=== PATIENT | female | born 1990 | race Two or more races ===

== ENCOUNTER 2019-02-22 18:24 | Emergency (ER) | payer BC ==
--- NOTE | 2019-02-22 18:59 | EDM.PDOC ---
ED HPI GENERAL MEDICAL PROBLEM - General Chief Complaint: ENT Problem Stated Complaint: PT HAS SORE THROAT Time Seen by Provider: 02/22/19 18:50 Source of Information: Reports: Patient History Limitations: Reports: No Limitations - History of Present Illness INITIAL COMMENTS - FREE TEXT/NARRATIVE: HISTORY AND PHYSICAL: History of present illness: Patient is a 29-year-old female presents to the ED today with concern of sore throat 4 days. Patient states she has had strep in the past medical symptoms today feel similar to that. She states she has not taken anything for her symptoms and has been able to eat and drink without difficulty. Patient denies any other symptoms or concerns. Patient denies fever, chills, chest pain, shortness of breath, or cough. Denies headache, neck stiff ness, change in vision, syncope, or near syncope. Denies nausea, vomiting, abdominal pain, diarrhea, constipation, or dysuria. Has not noted any blood in urine or stool. Patient has been eating and drinking appropriately. Review of systems: As per history of present illness and below otherwise all systems reviewed and negative. Past medical history: As per history of present illness and as reviewed below otherwise noncontributory. Surgical history: As per history of present illness and as reviewed below otherwise noncontributory. Social history: See social history for further information Family history: As per history of present illness and as reviewed below otherwise noncontributory. Physical exam: General: Patient is alert, oriented, and in no acute distress. Patient sitting comfortably on exam table. HEENT: Atraumatic, normocephalic, pupils equal and reactive bilaterally, negative for conjunctival pallor or scleral icterus, mucous membranes moist, TMs normal bilaterally, throat is moderately erythematous and tonsils are enlarged with white exudate, neck supple, nontender, trachea midline. No drooling or trismus noted. No meningeal signs. No hot potato voice noted. Lungs: Clear to auscultation, breath sounds equal bilaterally, chest nontender. Heart: S1S2, regular rate and rhythm without overt murmur Abdomen: Soft, nondistended, nontender. Negative for masses or hepatosplenomegaly. Negative for costovertebral tenderness. Pelvis: Stable nontender. Genitourinary: Deferred. Rectal: Deferred. Skin: Intact, warm, dry. No lesions or rashes noted. Extremities: Atraumatic, negative for cords or calf pain. Neurovascular unremarkable. Neuro: Awake, alert, oriented. Cranial nerves II through XII unremarkable. Cerebellum unremarkable. Motor and sensory unremarkable throughout. Exam nonfocal. Notes: Discussed the importance for follow-up with primary care provider. Voices understanding and is agreeable to plan of care. Denies any further questions or concerns at this time. Diagnostics: None Therapeutics: None Prescription: Clindamycin Impression: Pharyngitis Plan: 1. Take medication as prescribed. You can alternate ibuprofen and Tylenol as directed for pain and discomfort. 2. Follow-up with her primary care provider as discussed. Return to the ED as needed and as discussed. Definitive disposition and diagnosis as appropriate pending reevaluation and review of above. - Related Data Allergies Allergy/AdvReac Type Severity Reaction Status Date / Time Penicillins Allergy Rash Verified 02/22/19 18:50 Home Meds: Home Meds . [No Known Home Meds] 02/22/19 [History] ED ROS GENERAL - Review of Systems Review Of Systems: ROS reveals no pertinent complaints other than HPI. ED EXAM, GENERAL - Physical Exam Exam: See Below (See dictation) Course - Vital Signs Last Recorded V/S: Last Vital Signs Temp 36.8 C 02/22/19 18:51 Pulse 108 H 02/22/19 18:51 Resp 16 02/22/19 18:51 BP 121/71 02/22/19 18:51 Pulse Ox 100 02/22/19 18:51 Departure - Departure Time of Disposition: 18:59 Disposition: Home, Self-Care 01 Clinical Impression: Pharyngitis Qualifiers: Pharyngitis/tonsillitis etiology: unspecified etiology Qualified Code(s): J02.9 - Acute pharyngitis, unspecified - Discharge Information Referrals: PCP,None [Primary Care Provider] - Forms: ED Department Discharge Additional Instructions: The following information is given to patients seen in the emergency department who are being discharged to home. This information is to outline your options for follow-up care. We provide all patients seen in our emergency department with a follow-up referral. The need for follow-up, as well as the timing and circumstances, are variable depending upon the specifics of your emergency department visit. If you don't have a primary care physician on staff, we will provide you with a referral. We always advise you to contact your personal physician following an emergency department visit to inform them of the circumstance of the visit and for follow-up with them and/or the need for any referrals to a consulting specialist. The emergency department will also refer you to a specialist when appropriate. This referral assures that you have the opportunity for follow-up care with a specialist. All of these measure are taken in an effort to provide you with optimal care, which includes your follow-up. Under all circumstances we always encourage you to contact your private physician who remains a resource for coordinating your care. When calling for follow-up care, please make the office aware that this follow-up is from your recent emergency room visit. If for any reason you are refused follow-up, please contact the [facility] Emergency Department at and asked to speak to the emergency department charge nurse. [facility] [address] [place] [address] [id number] 1. Take medication as prescribed. You can alternate ibuprofen and Tylenol as directed for pain and discomfort. 2. Follow-up with her primary care provider as discussed. Return to the ED as needed and as discussed.
== END 2019-02-22 19:11 | disposition home or self-care (01) ==
LOC: MW.ED 18:24
DX: J02.9 Acute pharyngitis, unspecified (principal); Z88.0 Allergy status to penicillin
CPT/HCPCS: 99282

== ENCOUNTER 2019-02-22 23:47 | Emergency (ER) | payer BC ==
[2019-02-22] MEDS ORDERED: cefTRIAXone 1 GM in Premix Bag 1 BAG IV ONE (23:59)
[2019-02-22] MEDS ORDERED: Sodium Chloride 0.9% 1,000 ML IV ONE (23:59)
[2019-02-22] MEDS ORDERED: Sodium Chloride 0.9% 2.5 ML Syringe FLUSH PRN (23:59)
[2019-02-22] MEDS ORDERED: Dexamethasone 10 MG/ML SDV IVPUSH ONE (23:59)
[2019-02-22] MEDS ORDERED: Ketorolac 30 MG/ML SDV IVPUSH ONE (23:59)
[2019-02-22] MEDS ORDERED: Sodium Chloride 0.9% 10 ML Syringe FLUSH PRN (23:59)
--- NOTE | 2019-02-23 00:03 | EDM.PDOC ---
ED HPI GENERAL MEDICAL PROBLEM - General Chief Complaint: ENT Problem Stated Complaint: PT THROAT IS SWELLING Time Seen by Provider: 02/22/19 23:55 - History of Present Illness INITIAL COMMENTS - FREE TEXT/NARRATIVE: HISTORY AND PHYSICAL: History of present illness: The patient is a 29-year-old female who was seen here earlier today with complaints of sore throat for 5 days and was diagnosed as pharyngitis/ tonsillitis and placed on clindamycin and represented this evening saying that she feels like her throat is more swollen. She says the pain is more on the right side and she feels like her glands in her neck are more swollen on that side and she is having difficulty swallowing. She has been able to tolerate fluids and has no nausea vomiting or abdominal pain. She has no chest pain or shortness of breath. The patient has a history of a bilateral tubal ligation. Review of systems: As per history of present illness and below otherwise all systems reviewed and negative. Past medical history: As per history of present illness and as reviewed below otherwise noncontributory. Surgical history: As per history of present illness and as reviewed below otherwise noncontributory. Social history: No reported history of drug or alcohol abuse. Family history: As per history of present illness and as reviewed below otherwise noncontributory. Physical exam: General: Well-developed well-nourished female who is nontoxic and vital signs are noted by me. She speaks with a somewhat hoarse voice but is not breathless. HEENT: Atraumatic, normocephalic, pupils reactive, negative for conjunctival pallor or scleral icterus, mucous membranes moist, throat clear, neck supple, nontender, trachea midline. There is anterior cervical adenopathy right greater than left but no posterior adenopathy and no nuchal rigidity. Bilateral tonsillar areas are swollen and erythematous with exudates but the right is larger than the left with a slight shift of the uvula. Lungs: Clear to auscultation, breath sounds equal bilaterally, chest nontender. No wheezing or stridor Heart: S1S2, regular, negative for clicks, rubs, or JVD. Abdomen: Soft, nondistended, nontender. Negative for masses or hepatosplenomegaly. Negative for costovertebral tenderness. Pelvis: Deferred Genitourinary: Deferred. Rectal: Deferred. Extremities: Atraumatic, negative for cords or calf pain. Neurovascular unremarkable. Neuro: Awake, alert, oriented. Cranial nerves II through XII unremarkable. Cerebellum unremarkable. Motor and sensory unremarkable throughout. Exam nonfocal. Diagnostics: CBC CMP CT scan of the soft tissue neck Therapeutics: IV fluids Toradol Decadron Rocephin 0225: Case was discussed with Dr. Alejo at [facility] in [place] for this peritonsillar abscess as we do not have ENT here at our facility. He is aware and accepts the patient. I discussed with the patient her lab and CAT scan findings and the need to go to [place] and she would like to go by private car. She is aware that we will remove the IV. She is also aware that there is no evidence of any airway compromise on her CAT scan and that she can go by private car and we will send her with the appropriate papers. I did discuss with her elevated liver function tests and need for follow-up. Impression: Right peritonsillar abscess Definitive disposition and diagnosis as appropriate pending reevaluation and review of above. throat Pain Score (Numeric/FACES): 8 - Related Data Allergies Allergy/AdvReac Type Severity Reaction Status Date / Time ciprofloxacin [From Cipro] Allergy Itching Verified 02/22/19 23:55 Penicillins Allergy Rash Verified 02/22/19 23:55 Home Meds: Home Meds . [No Known Home Meds] 02/22/19 [History] Past Medical History - Infectious Disease History Infectious Disease History: Reports: Chicken Pox - Past Surgical History Dermatological Surgical History: Reports: Skin Biopsy Social & Family History - Family History Family Medical History: Noncontributory - Caffeine Use Caffeine Use: Reports: Coffee ED ROS GENERAL - Review of Systems Review Of Systems: ROS reveals no pertinent complaints other than HPI. ED EXAM, GENERAL - Physical Exam Exam: See Below (see dictation) Course - Vital Signs Last Recorded V/S: Last Vital Signs Temp 37.4 C 02/22/19 23:55 Pulse 97 02/22/19 23:55 Resp 18 02/22/19 23:55 BP 132/92 H 02/22/19 23:55 Pulse Ox 100 02/22/19 23:55 - Orders/Labs/Meds Orders: Active Orders 24 hr Category Date Time Status Sodium Chloride 0.9% [Saline Flush] Med 02/22/19 23:59 Active 10 ml FLUSH ASDIRECTED PRN Sodium Chloride 0.9% [Saline Flush] Med 02/22/19 23:59 Active 2.5 ml FLUSH ASDIRECTED PRN Saline Lock Insert [OM.PC] Stat Oth 02/22/19 23:58 Ordered Medication Orders Sodium Chloride (Saline Flush) 10 ml FLUSH ASDIRECTED PRN PRN Reason: Keep Vein Open Sodium Chloride (Saline Flush) 2.5 ml FLUSH ASDIRECTED PRN PRN Reason: Keep Vein Open Labs: Laboratory Tests 02/23/19 02/23/19 Range/Units 00:15 00:15 WBC 10.40 (4.0-11.0) K/uL RBC 4.24 L (4.30-5.90) M/uL Hgb 12.9 (12.0-16.0) g/dL Hct 38.0 (36.0-46.0) % MCV 89.6 (80.0-98.0) fL MCH 30.4 (27.0-32.0) pg MCHC 33.9 (31.0-37.0) g/dL RDW Std Deviation 41.8 (28.0-62.0) fl RDW Coeff of Efra 13 (11.0-15.0) % Plt Count 337 (150-400) K/uL MPV 10.30 (7.40-12.00) fL Add Manual Diff YES Neutrophils % (Manual) 62 (48.0-80.0) % Band Neutrophils % 2 % Lymphocytes % (Manual) 27 (16.0-40.0) % Monocytes % (Manual) 5 (0.0-15.0) % Eosinophils % (Manual) 3 (0.0-7.0) % Basophils % (Manual) 1 (0.0-1.5) % Absolute Seg Neuts 6.4 H (1.4-5.7) Band Neutrophils # 0.2 Lymphocytes # (Manual) 2.8 H (0.6-2.4) Monocytes # (Manual) 0.5 (0.0-0.8) Eosinophils # (Manual) 0.3 (0.0-0.7) Basophils # (Manual) 0.1 (0.0-0.1) Sodium 142 (136-145) mmol/L Potassium 3.5 (3.5-5.1) mmol/L Chloride 105 (98-107) mmol/L Carbon Dioxide 27.2 (21.0-32.0) mmol/L BUN 12 (7.0-18.0) mg/dL Creatinine 0.8 (0.6-1.0) mg/dL Est Cr Clr Drug Dosing 94.55 mL/min Estimated GFR (MDRD) > 60.0 ml/min Glucose 90 (74-106) mg/dL Calcium 9.3 (8.5-10.1) mg/dL Total Bilirubin 0.4 (0.2-1.0) mg/dL AST 264 H (15-37) IU/L ALT 223 H (14-63) IU/L Alkaline Phosphatase 269 H (46-116) U/L Total Protein 7.6 (6.4-8.2) g/dL Albumin 3.4 (3.4-5.0) g/dL Globulin 4.2 H (2.6-4.0) g/dL Albumin/Globulin Ratio 0.8 L (0.9-1.6) Meds: Medications Generic Name Dose Route Start Last Admin Trade Name Freq PRN Reason Stop Dose Admin Sodium Chloride 10 ml 02/22/19 23:59 Saline Flush FLUSH ASDIRECTED PRN Keep Vein Open Sodium Chloride 2.5 ml 02/22/19 23:59 Saline Flush FLUSH ASDIRECTED PRN Keep Vein Open Discontinued Medications Generic Name Dose Route Start Last Admin Trade Name Freq PRN Reason Stop Dose Admin Dexamethasone 10 mg 02/22/19 23:59 02/23/19 00:15 Dexamethasone IVPUSH 02/23/19 00:00 10 mg ONETIME ONE Administration Ceftriaxone Sodium/Dextrose 1 50 mls @ 100 mls/hr 02/22/19 23:59 02/23/19 00: 20 gm/ Premix IV 02/23/19 00:28 100 mls/hr ONETIME ONE Administration Sodium Chloride 1,000 mls @ 999 mls/hr 02/22/19 23:59 02/23/19 00:15 Normal Saline IV 02/23/19 00:59 999 mls/hr STAT ONE Administration Iopamidol 75 ml 02/23/19 01:34 02/23/19 01:36 Isovue Multipack-370 (76%) IVPUSH 02/23/19 01:35 75 ml ONETIME ONE Administration Ketorolac Tromethamine 30 mg 02/22/19 23:59 02/23/19 00:16 Toradol IVPUSH 02/23/19 00:00 30 mg ONETIME ONE Administration Departure - Departure Time of Disposition: 02:32 Disposition: DC/Tfer to Acute Hospital 02 Condition: Good Clinical Impression: Peritonsillar abscess - Discharge Information Referrals: PCP,None [Primary Care Provider] - Forms: ED Department Discharge - My Orders Last 24 Hours: My Active Orders 02/22/19 23:58 Saline Lock Insert [OM.PC] Stat 02/22/19 23:59 Sodium Chloride 0.9% [Saline Flush] 10 ml FLUSH ASDIRECTED PRN Sodium Chloride 0.9% [Saline Flush] 2.5 ml FLUSH ASDIRECTED PRN - Assessment/Plan Last 24 Hours: My Active Orders 02/22/19 23:58 Saline Lock Insert [OM.PC] Stat 02/22/19 23:59 Sodium Chloride 0.9% [Saline Flush] 10 ml FLUSH ASDIRECTED PRN Sodium Chloride 0.9% [Saline Flush] 2.5 ml FLUSH ASDIRECTED PRN
[2019-02-23 01:04] LABS: BLOOD UREA NITROGEN,BUN 12 mg/dL (7.0-18.0); CARBON DIOXIDE,CO2 27.2 mmol/L (21.0-32.0); CHLORIDE,CL 105 mmol/L (98-107); GLUCOSE RANDOM 90 mg/dL (74-106); POTASSIUM,K 3.5 mmol/L (3.5-5.1); SODIUM,NA 142 mmol/L (136-145)
[2019-02-23] MEDS ORDERED: Iopamidol 755 MG/ML 500 ML Multipack Bottle IVPUSH ONE (01:34)
--- NOTE | 2019-02-23 02:15 | CT ---
INDICATION: Sore throat and swollen neck TECHNIQUE: CT neck soft tissue with i.v. contrast. Coronal and sagittal reformats were obtained. CONTRAST: 75 mL Isovue 370 COMPARISON: None FINDINGS: Skull base: Unremarkable. Portions of the oral cavity and mandible are obscured by streak artifacts from the patient`s dental amalgams. Pharynx: No retropharyngeal fluid collections are identified. Moderate enlargement of the right palatine tonsil is present with a tonsillar abscess measuring 2.5 x 1.2 cm. Mild adenoidal hypertrophy in the right posterior nasopharynx is seen and obscuring the fossa of Rosenmuller. Follow-up imaging is recommended to document resolution. Mild edema is present within the right parapharyngeal space. The epiglottis is normal in appearance. Larynx and airway: Unremarkable. Salivary: Unremarkable. Thyroid: Unremarkable. Vascular: Unremarkable for age. Lymph: A right jugular adenopathy present with lymph nodes measuring up to 1.3 cm in maximal short axis diameter. Bone: Mild kyphosis of the mid cervical spine is seen. Disc: The disc spaces are unremarkable in appearance. The facet joints are unremarkable. Soft tissue: The prevertebral soft tissues are unremarkable in appearance. Lung: The visualized lung apices and mediastinum are unremarkable. IMPRESSIONS: 1. Moderate enlargement of the right palatine tonsil is present with a tonsillar abscess measuring 2.5 x 1.2 cm. 2. A right jugular adenopathy present with lymph nodes measuring up to 1.3 cm in maximal short axis diameter. Dictated by Adan Tillman MD @ 02/23/2019 2:12:30 AM Please note that all CT scans at this facility use dose modulation, iterative reconstruction, and/or weight-based dosing when appropriate to reduce radiation dose to as low as reasonably achievable. Dictated by: Adan Tillman MD @ 02/23/2019 02:12:32 (Electronically Signed)
== END 2019-02-23 03:00 ==
LOC: MW.ED 23:47
DX: J36 Peritonsillar abscess (principal); Z88.1 Allergy status to other antibiotic agents; Z88.0 Allergy status to penicillin
CPT/HCPCS: 36415; 70491; 80053; 85025; 96365; 96375; 99284; J0696; J1100; J1885; J7040; Q9967

== ENCOUNTER 2021-05-03 13:49 | Emergency (ER) | payer OTHER ==
--- NOTE | 2021-05-03 14:19 | CR ---
INDICATION: Chest pain, shortness of breath TECHNIQUE: Chest radiograph 1 view COMPARISON: None FINDINGS: Mediastinum: The mediastinum is normal in appearance. The heart silhouette is normal in size and morphology. Lung: A small peripheral ground-glass nodule seen in the left mid lung zone measuring 1.5 cm. No sign of pleural effusion seen. No pneumothorax is identified. Bone and Soft tissue: Unremarkable for age. IMPRESSION: 1. A small peripheral ground-glass nodule seen in the left mid lung zone measuring 1.5 cm. Follow-up chest radiograph in 3 months is recommended. Dictated by Adan Tillman MD @ 05/03/2021 2:18:42 PM Dictated by: Adan Tillman MD @ 05/03/2021 14:18:46 (Electronically Signed)
--- NOTE | 2021-05-03 16:41 | EDM.PDOC ---
ED HPI GENERAL MEDICAL PROBLEM - General Chief Complaint: Respiratory Problem Stated Complaint: COVID POS SOB Time Seen by Provider: 05/03/21 16:37 Source of Information: Reports: Patient History Limitations: Reports: No Limitations - History of Present Illness INITIAL COMMENTS - FREE TEXT/NARRATIVE: HISTORY AND PHYSICAL: History of present illness: Patient is a 31-year-old female who presents to the emergency room with complaints of increased shortness of breath since being diagnosed with COVID-19. She states she was diagnosed on 04/25/2021. She has had a mild headache with diarrhea. Patient denies any fever, chills, headache, change in vision, syncope or near syncope. Denies any chest pain, back pain, shortness of breath or cough. Denies any abdominal pain, nausea, vomiting, diarrhea, constipation or dysuria. Has not noted any blood in urine or stool. Patient has been eating and drinking appropriately. No recent travel or sick contacts. Review of systems: As per history of present illness and below otherwise all systems reviewed and negative. Past medical history: As per history of present illness and as reviewed below otherwise noncontributory. Surgical history: As per history of present illness and as reviewed below otherwise noncontributory. Social history: See social history for further information Family history: As per history of present illness and as reviewed below otherwise noncontributory. Physical exam: General: Well developed and well nourished. Alert and orientated x 3. Nontoxic in appearance and in no acute distress. Vital signs are stable and have been reviewed by me. Nursing notes were reviewed. HEENT: Atraumatic, normocephalic, pupils equal and reactive bilaterally, negative for conjunctival pallor or scleral icterus, mucous membranes moist, TMs normal bilaterally, throat clear, neck supple, nontender, trachea midline. No drooling or trismus noted. No meningeal signs. No hot potato voice noted. Lungs: Clear to auscultation bilaterally. No wheezes, rales, or rhonchi. Chest nontender. Normal work of breathing, no accessory muscles used. Heart: S1S2, regular rate and rhythm without overt murmur, gallops, or rubs. No JVD. No peripheral edema Abdomen: Soft, nondistended, nontender. Normoactive bowel sounds. Negative for masses or costovertebral tenderness. Skin: Intact, warm, dry. No lesions or rashes noted. Hematologic: No petechiae or purpra. Mucosa appropriate color and normal nail bed color and refill. Extremities: Atraumatic, moves all extremities per self without difficulty or deficits, negative for cords or calf pain. Neurovascular unremarkable. Neuro: Awake, alert, oriented. Cranial nerves II through XII unremarkable. Cerebellum unremarkable. Motor and sensory unremarkable throughout. Exam non focal. Psychiatric: Mood and affect are appropriate. Normal thought process. Answering questions appropriately. Please note that the patient was seen and evaluated during the 2019 SARS-CoV-2 novel coronavirus pandemic period. Community viral transmission is ongoing at time of this encounter and the emergency department is operating under pandemic response procedures. Medical Decision Making: A small peripheral ground-glass nodule seen in the left mid lung zone measuring 1.5 cm. Follow-up chest radiograph in 3 months is recommended. I have talked with the patient about today's findings, in addition to providing specific details for plan of care. Reassessment at the time of disposition demonstrates that the patient is in no acute distress. The patient is stable for discharge, counseling was provided and we discussed in great detail signs and symptoms that would prompt them to return to the Emergency Department. Medication, follow up and supportive care measures were reviewed and discussed. Voices understanding and is agreeable to plan of care. Denies any further questions or concerns at this time. Diagnostics: CXR, EKG Therapeutics: None Prescription: None Impression: COVID-19 Plan: 1. Your chest x-ray shows a small nodule in the left lung that recommends a follow-up chest radiograph in 3 months. No concern for pneumonia. EKG shows no acute or concerning findings. Unfortunately your symptoms are likely due to COVID-19 progression. Your vital signs and oxygen saturation are well enough that you were able to monitor your symptoms at home. Continue to monitor for trouble breathing, new confusion or inability to arouse, bluish lips or face or any of the other symptoms we discussed -if this occurs please return to the emergency room immediately. 2. Please self quarantine until cleared by [facility]. Inform any persons that you have been in contact with since you started becoming symptomatic that you have tested positive; they should be made aware and take the appropriate steps as needed. 3. You can take NyQuil during the evening to help get a restful night sleep. May alternate Tylenol and ibuprofen as needed for pain and fever management. 4. The [place] COVID 19 Hotline phone number , They are open Thursday - Thursday 7am - 7pm. Follow up with your primary care provider for re-evaluation as directed. Definitive disposition and diagnosis as appropriate pending reevaluation and review of above. Chest Pain Score (Numeric/FACES): 4 - Related Data Allergies Allergy/AdvReac Type Severity Reaction Status Date / Time ciprofloxacin [From Cipro] Allergy Itching Verified 05/03/21 17:25 Penicillins Allergy Rash Verified 05/03/21 17:25 Home Meds: Home Meds . [No Known Home Meds] 02/22/19 [History] Past Medical History - Past Health History Medical/Surgical History: Denies Medical/Surgical History HEENT History: Reports: None Cardiovascular History: Reports: None Respiratory History: Reports: None Gastrointestinal History: Reports: None Genitourinary History: Reports: None PLUGMAN History: Reports: None Musculoskeletal History: Reports: None Neurological History: Reports: None Psychiatric History: Reports: None Endocrine/Metabolic History: Reports: None Hematologic History: Reports: None Immunologic History: Reports: None - Infectious Disease History Infectious Disease History: Reports: Chicken Pox - Past Surgical History Dermatological Surgical History: Reports: Skin Biopsy Social & Family History - Family History Family Medical History: No Pertinent Family History - Caffeine Use Caffeine Use: Reports: Coffee ED ROS GENERAL - Review of Systems Review Of Systems: Comprehensive ROS is negative, except as noted in HPI. ED EXAM, GENERAL - Physical Exam Exam: See Below (See dictation) Course - Vital Signs Last Recorded V/S: Last Vital Signs Temp 97.0 F 05/03/21 17:26 Pulse 106 H 05/03/21 17:26 Resp 16 05/03/21 17:26 BP 108/73 05/03/21 17:26 Pulse Ox 100 05/03/21 17:26 - Orders/Labs/Meds Orders: Active Orders 24 hr Category Date Time Status EKG Documentation Completion [RC] STAT Care 05/03/21 17:30 Ordered Departure - Departure Time of Disposition: 17:41 Disposition: Home, Self-Care 01 Clinical Impression: COVID-19 - Discharge Information Instructions: 10 Things You Can Do to Manage Your COVID-19 Symptoms at Home - [facility] (12/28/2020) Referrals: PCP,None [Primary Care Provider] - Forms: ED Department Discharge Additional Instructions: The following information is given to patients seen in the emergency department who are being discharged to home. This information is to outline your options for follow-up care. We provide all patients seen in our emergency department with a follow-up referral. The need for follow-up, as well as the timing and circumstances, are variable depending upon the specifics of your emergency department visit. If you don't have a primary care physician on staff, we will provide you with a referral. We always advise you to contact your personal physician following an emergency department visit to inform them of the circumstance of the visit and for follow-up with them and/or the need for any referrals to a consulting specialist. The emergency department will also refer you to a specialist when appropriate. This referral assures that you have the opportunity for follow-up care with a specialist. All of these measure are taken in an effort to provide you with optimal care, which includes your follow-up. Under all circumstances we always encourage you to contact your private physician who remains a resource for coordinating your care. When calling for follow-up care, please make the office aware that this follow-up is from your recent emergency room visit. If for any reason you are refused follow-up, please contact the [facility] Emergency Department at and asked to speak to the emergency department charge nurse. [facility] [address] [place] [address] [place] [address] Thank you for choosing the [facility] emergency department in [place] for your medical needs today. It was a pleasure caring for you. Today you were seen in the emergency department for increased shortness of breath with COVID-19 1. Your chest x-ray shows a small nodule in the left lung that recommends a follow-up chest radiograph in 3 months. No concern for pneumonia. EKG shows no acute or concerning findings. Unfortunately your symptoms are likely due to COVID-19 progression. Your vital signs and oxygen saturation are well enough that you were able to monitor your symptoms at home. Continue to monitor for trouble breathing, new confusion or inability to arouse, bluish lips or face or any of the other symptoms we discussed -if this occurs please return to the emergency room immediately. 2. Please self quarantine until cleared by [facility] Department. Inform any persons that you have been in contact with since you started becoming symptomatic that you have tested positive; they should be made aware and take the appropriate steps as needed. 3. You can take NyQuil during the evening to help get a restful night sleep. May alternate Tylenol and ibuprofen as needed for pain and fever management. 4. The [place] COVID 19 Hotline phone number , They are open Thursday - Thursday 7am - 7pm. Follow up with your primary care provider for re-evaluation as directed. Sepsis Event Note (ED) - Focused Exam Vital Signs: Vital Signs Temp Pulse Resp BP Pulse Ox 05/03/21 17:26 97.0 F 106 H 16 108/73 100 - My Orders Last 24 Hours: My Active Orders 05/03/21 17:30 EKG Documentation Completion [RC] STAT - Assessment/Plan Last 24 Hours: My Active Orders 05/03/21 17:30 EKG Documentation Completion [RC] STAT
--- NOTE | 2021-05-03 17:42 | PCM.EKG ---
#1 Interpretation EKG Date: 05/03/21 Time: 17:35 Rhythm: NSR Rate (Beats/Min): 105 [place]: Normal P-Wave: Present QRS: Normal ST-T: Normal QT: Normal Comparison: NA - No Prior EKG EKG Interpretation Comments: Sinus Tachycardia
== END 2021-05-03 18:00 | disposition home or self-care (01) ==
LOC: MW.ED 13:49
DX: U07.1 COVID-19 (principal); Z88.0 Allergy status to penicillin; Z88.1 Allergy status to other antibiotic agents
CPT/HCPCS: 71045; 71045-26; 93005; 99285-25

== ENCOUNTER 2022-03-12 01:12 | Emergency (ER) | payer OTHER ==
[2022-03-12] MEDS ORDERED: Ketorolac 30 MG/ML SDV IM STA (01:35)
[2022-03-12] MEDS ORDERED: Doxycycline 100 MG Cap PO ONE (01:35)
== END 2022-03-12 01:48 | disposition home or self-care (01) ==
LOC: MW.ED 01:12
DX: L01.00 Impetigo, unspecified (principal); Z88.0 Allergy status to penicillin
CPT/HCPCS: 99282; A9270; 99283

== ENCOUNTER 2022-03-31 12:14 | Emergency (ER) | payer OTHER | END 2022-03-31 14:02 | disposition home or self-care (01) | LOC: MW.ED 12:14 | DX: L03.211 Cellulitis of face (principal); H60.91 Unspecified otitis externa, right ear; Z88.0 Allergy status to penicillin; Z88.1 Allergy status to other antibiotic agents | CPT/HCPCS: 99283 ==

== ENCOUNTER 2022-04-06 16:51 | Emergency (ER) | payer OTHER ==
[2022-04-06 17:59] LABS: CORONAVIRUS COVID-19 NAA NEGATIVE (NEGATIVE); INFLUENZA A NAA NEGATIVE (NEGATIVE); INFLUENZA B NAA NEGATIVE (NEGATIVE)
== END 2022-04-06 19:40 | disposition home or self-care (01) ==
LOC: MW.ED 16:51
DX: B34.9 Viral infection, unspecified (principal); Z88.0 Allergy status to penicillin; Z88.1 Allergy status to other antibiotic agents; Z20.822 Contact with and (suspected) exposure to COVID-19
CPT/HCPCS: 0240U; 70360; 71046; 87651; 99284; 99283

== ENCOUNTER 2022-05-24 21:33 | Emergency (ER) | payer OTHER ==
[2022-05-24] MEDS ORDERED: Lactated Ringers 1,000 ML IV STA (23:54)
[2022-05-24] MEDS ORDERED: Meclizine 25 MG Tab PO ONE (23:54)
[2022-05-25 00:43] LABS: BLOOD UREA NITROGEN,BUN 21 mg/dL (7.0-18.0); CARBON DIOXIDE,CO2 29.1 mmol/L (21.0-32.0); CHLORIDE,CL 103 mmol/L (98-107); GLUCOSE RANDOM 92 mg/dL (74-106); POTASSIUM,K 4.2 mmol/L (3.5-5.1); SODIUM,NA 140 mmol/L (136-145)
[2022-05-25 00:46] LABS: ESTIMATED GFR 124 mL/min (>60)
[2022-05-25] MEDS ORDERED: Ondansetron 4 MG/2 ML SDV IVPUSH ONE (00:57)
== END 2022-05-25 01:14 | disposition home or self-care (01) ==
LOC: MW.ED 21:33
DX: R42 Dizziness and giddiness (principal); Z88.1 Allergy status to other antibiotic agents; Z88.0 Allergy status to penicillin; Z90.49 Acquired absence of other specified parts of digestive tract
CPT/HCPCS: 36415; 80053; 81003; 81025; 83735; 84484; 85025; 93005; 96361; 96374; 99284; A9270; J2405; J7120; 93010; 99283

== ENCOUNTER 2022-11-21 09:39 | Emergency (ER) | payer BC, OTHER ==
[2022-11-21] MEDS ORDERED: Ketorolac 30 MG/ML SDV IVPUSH ONE (10:13)
[2022-11-21] MEDS ORDERED: Acetaminophen 325 MG Tab PO ONE (10:13)
[2022-11-21] MEDS ORDERED: Sodium Chloride 0.9% 10 ML Syringe FLUSH PRN (10:14)
[2022-11-21] MEDS ORDERED: Lidocaine 4% 1 each Patch TOP STA (10:14)
[2022-11-21] MEDS ORDERED: Sodium Chloride 0.9% 2.5 ML Syringe FLUSH PRN (10:14)
[2022-11-21 10:43] LABS: BASOPHILS PERCENT AUTO 0.3 % (0.0-1.5); EOSINOPHILS ABSOLUTE AUTO 0.4 K/uL (0.0-0.7); EOSINOPHILS PERCENT AUTO 5.7 % (0.0-7.0); HEMATOCRIT 37.7 % (36.0-46.0); HEMOGLOBIN 12.1 g/dL (12.0-16.0); LYMPHOCYTES ABSOLUTE AUTO 1.5 K/uL (0.6-2.4); MEAN CORPUSCULAR HEMOGLOBIN 26.6 pg (27.0-32.0); MEAN CORPUSCULAR HGB CONC 32.1 g/dL (31.0-37.0); MEAN CORPUSCULAR VOLUME 82.9 fL (80.0-98.0); MONOCYTES ABSOLUTE AUTO 0.4 K/uL (0.0-0.8); MONOCYTES PERCENT AUTO 5.5 % (0.0-15.0); NEUTROPHILS ABSOLUTE AUTO 4.8 K/uL (1.4-5.7); NEUTROPHILS PERCENT AUTO 67.5 % (48.0-80.0); NRBC ABSOLUTE 0 K/uL; PLATELET COUNT,PLT 244 K/uL (150-400); RED BLOOD CELL COUNT 4.55 M/uL (4.30-5.90); WHITE BLOOD CELL COUNT,WBC 7.04 K/uL (4.0-11.0)
[2022-11-21 11:21] LABS: A/G RATIO 0.9 (0.9-1.6); ALANINE AMINOTRANSFERASE,ALT 19 IU/L (14-63); ALBUMIN 3.6 g/dL (3.4-5.0); ALKALINE PHOSPHATASE 74 U/L (46-116); ASPARTATE AMNIOTRANSFERASE,AST 12 IU/L (15-37); BILIRUBIN TOTAL 0.6 mg/dL (0.2-1.0); BLOOD UREA NITROGEN,BUN 16 mg/dL (7.0-18.0); CALCIUM 8.3 mg/dL (8.5-10.1); CARBON DIOXIDE,CO2 28.1 mmol/L (21.0-32.0); CHLORIDE,CL 104 mmol/L (98-107); CREATININE 0.8 mg/dL (0.6-1.0); EST CRCL DRUG DOSING (CG) 85.06 mL/min; GLUCOSE RANDOM 111 mg/dL (74-106); POTASSIUM,K 3.3 mmol/L (3.5-5.1); PROTEIN TOTAL,TP 7.4 g/dL (6.4-8.2); SODIUM,NA 141 mmol/L (136-145)
[2022-11-21 11:22] LABS: ESTIMATED GFR 102 mL/min (>60)
== END 2022-11-21 11:55 | disposition home or self-care (01) ==
LOC: MW.ED 09:39
DX: R07.89 Other chest pain (principal); F17.210 Nicotine dependence, cigarettes, uncomplicated
CPT/HCPCS: 36415; 71046; 80053; 84484; 84702; 85025; 85379; 93005; 96374; 99285; A9270; J1885; J3490; 93010; 99284

== ENCOUNTER 2022-12-14 12:16 | Emergency (ER) | payer OTHER, BC ==
[2022-12-14] MEDS ORDERED: Acetaminophen 500 MG Tab PO STA (13:07)
== END 2022-12-14 15:08 | disposition home or self-care (01) ==
LOC: MW.ED 12:16
DX: S39.92XA Unspecified injury of lower back, initial encounter (principal); Z91.09 Other allergy status, other than to drugs and biological substances; Z88.1 Allergy status to other antibiotic agents; Z88.0 Allergy status to penicillin; W10.9XXA Fall (on) (from) unspecified stairs and steps, initial encounter
CPT/HCPCS: 72100; 72100-26; 73521; 73521-26; 99283

== ENCOUNTER 2024-06-21 17:47 | Emergency (ER) | payer BC, OTHER ==
[2024-06-21 18:35] LABS: BASOPHILS ABSOLUTE AUTO 0.01 K/uL (0.00-0.20); BASOPHILS PERCENT AUTO 0.1 % (0.0-1.0); EOSINOPHILS ABSOLUTE AUTO 0.04 K/uL (0.00-0.45); EOSINOPHILS PERCENT AUTO 0.4 % (0.0-6.0); HEMATOCRIT 38.8 % (37.0-47.0); HEMOGLOBIN 12.7 g/dL (12.0-16.0); IMMATURE GRAN ABSOLUTE AUTO 0.02 K/uL (0.00-0.05); IMMATURE GRAN PERCENT AUTO 0.2 % (0.0-0.4); LYMPHOCYTES ABSOLUTE AUTO 0.43 K/uL (1.00-4.80); LYMPHOCYTES PERCENT AUTO 4.4 % (24.0-44.0); MEAN CORPUSCULAR HEMOGLOBIN 27.7 pg (28.0-32.0); MEAN CORPUSCULAR HGB CONC 32.7 g/dL (32.0-36.0); MEAN CORPUSCULAR VOLUME 84.5 fL (83.0-99.0); MEAN PLATELET VOLUME 10.7 fL (9.4-12.3); MONOCYTES ABSOLUTE AUTO 0.37 K/uL (0.00-0.80); MONOCYTES PERCENT AUTO 3.8 % (0.0-8.0); NEUTROPHILS ABSOLUTE AUTO 8.85 K/uL (1.80-7.70); NEUTROPHILS PERCENT AUTO 91.1 % (41.0-71.0); PLATELET COUNT,PLT 242 K/uL (150-400); RED BLOOD CELL COUNT 4.59 M/uL (4.10-5.30); WHITE BLOOD CELL COUNT,WBC 9.72 K/uL (3.9-11.3)
[2024-06-21 19:14] LABS: A/G RATIO 0.9 (0.9-1.6); ALANINE AMINOTRANSFERASE,ALT 436 IU/L (14-63); ALBUMIN 3.6 g/dL (3.4-5.0); ALKALINE PHOSPHATASE 299 U/L (46-116); ASPARTATE AMNIOTRANSFERASE,AST 861 IU/L (15-37); BILIRUBIN TOTAL 1.8 mg/dL (0.2-1.0); BLOOD UREA NITROGEN,BUN 12 mg/dL (7.0-18.0); CALCIUM 8.7 mg/dL (8.5-10.1); CARBON DIOXIDE,CO2 27.1 mmol/L (21.0-32.0); CHLORIDE,CL 100 mmol/L (98-107); CREATININE 0.7 mg/dL (0.6-1.0); EST CRCL DRUG DOSING (CG) 95.44 mL/min; GLUCOSE RANDOM 97 mg/dL (74-106); POTASSIUM,K 3.9 mmol/L (3.5-5.1); PROTEIN TOTAL,TP 7.6 g/dL (6.4-8.2); SODIUM,NA 136 mmol/L (136-145)
[2024-06-21 19:15] LABS: ESTIMATED GFR 118 mL/min (>60)
[2024-06-21 20:04] LABS: INR 1.03 (0.86-1.11)
[2024-06-21 20:32] LABS: APPEARANCE,URINE CLEAR; BILIRUBIN,URINE NEGATIVE (NEGATIVE); COLOR,URINE YELLOW; GLUCOSE,URINE NEGATIVE (NEGATIVE); KETONES,URINE NEGATIVE (NEGATIVE); LEUKOCYTE ESTERASE,URINE NEGATIVE (NEGATIVE); NITRITE,URINE NEGATIVE (NEGATIVE); OCCULT BLOOD,URINE TRACE-INTACT (NEGATIVE); PROTEIN,URINE NEGATIVE (NEGATIVE)
[2024-06-21 20:34] LABS: BACTERIA,URINE FEW (NEGATIVE); EPITHELIAL CELLS,URINE MODERATE (NONE-FEW); RBC,URINE 0-2 (0-2/HPF); WBC,URINE 0-2 (0-5/HPF)
[2024-06-21] MEDS: Sodium Chloride 0.9% 1,000 ML IV ONE ×2 (20:54→21:52)
[2024-06-21] MEDS: Morphine 4 MG/ML Syringe IVPUSH ONE (20:54)
[2024-06-21] MEDS: Ondansetron 4 MG/2 ML SDV IVPUSH ONE (20:54)
[2024-06-22 01:23] LABS: BILIRUBIN TOTAL 1.9 mg/dL (0.2-1.0); CALCIUM 7.9 mg/dL (8.5-10.1); CARBON DIOXIDE,CO2 25.8 mmol/L (21.0-32.0); CREATININE 0.8 mg/dL (0.6-1.0); EST CRCL DRUG DOSING (CG) 83.51 mL/min; POTASSIUM,K 3.8 mmol/L (3.5-5.1)
[2024-06-22] MEDS ORDERED: Sodium Chloride 0.9% 1,000 ML IV SCH (03:45)
[2024-06-22] MEDS: Ketorolac 30 MG/ML SDV IVPUSH ONE ×2 (03:55→08:46)
[2024-06-22 04:56] LABS: BASOPHILS ABSOLUTE AUTO 0.02 K/uL (0.00-0.20); BASOPHILS PERCENT AUTO 0.4 % (0.0-1.0); EOSINOPHILS ABSOLUTE AUTO 0.08 K/uL (0.00-0.45); EOSINOPHILS PERCENT AUTO 1.5 % (0.0-6.0); HEMATOCRIT 33.7 % (37.0-47.0); HEMOGLOBIN 10.7 g/dL (12.0-16.0); IMMATURE GRAN ABSOLUTE AUTO 0.02 K/uL (0.00-0.05); IMMATURE GRAN PERCENT AUTO 0.4 % (0.0-0.4); LYMPHOCYTES ABSOLUTE AUTO 0.75 K/uL (1.00-4.80); LYMPHOCYTES PERCENT AUTO 14.3 % (24.0-44.0); MEAN CORPUSCULAR HEMOGLOBIN 27.2 pg (28.0-32.0); MEAN CORPUSCULAR HGB CONC 31.8 g/dL (32.0-36.0); MEAN CORPUSCULAR VOLUME 85.8 fL (83.0-99.0); MEAN PLATELET VOLUME 10.7 fL (9.4-12.3); MONOCYTES ABSOLUTE AUTO 0.33 K/uL (0.00-0.80); MONOCYTES PERCENT AUTO 6.3 % (0.0-8.0); NEUTROPHILS ABSOLUTE AUTO 4.04 K/uL (1.80-7.70); NEUTROPHILS PERCENT AUTO 77.1 % (41.0-71.0); PLATELET COUNT,PLT 206 K/uL (150-400); RED BLOOD CELL COUNT 3.93 M/uL (4.10-5.30); WHITE BLOOD CELL COUNT,WBC 5.24 K/uL (3.9-11.3)
[2024-06-22 05:17] LABS: ALBUMIN 2.8 g/dL (3.4-5.0); BILIRUBIN TOTAL 1.9 mg/dL (0.2-1.0); CARBON DIOXIDE,CO2 26.8 mmol/L (21.0-32.0); CREATININE 0.6 mg/dL (0.6-1.0); EST CRCL DRUG DOSING (CG) 111.35 mL/min; POTASSIUM,K 3.8 mmol/L (3.5-5.1); PROTEIN TOTAL,TP 6.1 g/dL (6.4-8.2)
[2024-06-22 05:18] LABS: A/G RATIO 0.9 (0.9-1.6)
[2024-06-22] MEDS: Ondansetron 4 MG/2 ML SDV IVPUSH ONE (08:45)
== END 2024-06-22 10:19 | disposition home or self-care (01) ==
LOC: MW.ED 17:47
DX: K80.50 Calculus of bile duct without cholangitis or cholecystitis without obstruction (principal); R74.01 Elevation of levels of liver transaminase levels; R79.89 Other specified abnormal findings of blood chemistry; Z75.8 Other problems related to medical facilities and other health care; Z88.0 Allergy status to penicillin; Z88.1 Allergy status to other antibiotic agents; Z91.048 Other nonmedicinal substance allergy status; Z79.899 Other long term (current) drug therapy; Z90.49 Acquired absence of other specified parts of digestive tract
CPT/HCPCS: 36415; 71045; 74181; 80053; 81001; 81025; 83605; 83690; 84484; 85025; 85610; 87428; 93005; 96361; 96374; 96375; 96376; 99284; J1885; J2270; J2405; J7030